=== PATIENT | male | born 1985 | race Caucasian/White ===

== ENCOUNTER 2022-12-15 14:02 | Outpatient (OUT) | payer OTHER, SELFPAY | END 2022-12-15 14:03 | disposition home or self-care (01) | LOC: LAB 14:07 | PROVIDERS: Visit Provider Internal Medicine | DX: B19.20 Unspecified viral hepatitis C without hepatic coma (principal) | CPT/HCPCS: 36415; 87522 ==

== ENCOUNTER 2023-06-04 12:13 | Outpatient (OUT) | payer OTHER, SELFPAY ==
--- NOTE | 2023-06-04 12:29 | XR_ITS ---
The [address] [address] Patient Name: BESSIE LINDA MRN: [id number] date: 1985 Sex: M Assigned Patient Location: LAB Current Patient Location: LAB Accession/Order Number: [id number] Exam Date: 06/04/2023 12:30 Report Date: 06/04/2023 13:03 At the request of: KENNY FELICITAS Procedure: XR abdomen min 2V EXAM: XR abdomen min 2V HISTORY: chronic constipation K59.09 COMPARISON: None. TECHNIQUE: AP view of the abdomen. FINDINGS: Nonobstructive bowel gas pattern is noted. There is no suspicious calcification. The osseous structures are intact. XR/XR abdomen min 2V IMPRESSION: Nonobstructive bowel gas pattern. Constipation. Electronically authenticated by: ANTOINETTE PORTER Date: 06/04/2023 13:03
[2023-06-04 12:58] LABS: Basophils Absolute Auto 0.1 10^3/uL (0.0-0.1); Basophils Percent Auto 1.2 % (0.2-2.0); Eosinophils Absolute Auto 0.4 10^3/uL (0.0-0.7); Eosinophils Percent Auto 5.6 % (0.9-7.0); Hematocrit 39.7 % (42.0-54.0); Hemoglobin 13.4 g/dL (14.0-18.0); Immature Granulocytes Abs Auto 0.01 10^3/uL (0.00-0.03); Immature Granulocytes Pct Auto 0.2 % (0.0-0.5); Lymphocytes Absolute Auto 2.1 10^3/uL (1.2-3.8); Mean Corpuscular HGB Conc 33.8 g/dL (29.9-35.2); Mean Corpuscular Volume 91.9 fL (80.0-94.0); Monocytes Absolute Auto 0.6 10^3/uL (0.3-0.8); Monocytes Percent Auto 9.5 % (1.7-12.0); Neutrophils Absolute Auto 3.3 10^3/uL (1.4-6.5); Neutrophils Percent Auto 50.5 % (43.0-75.0); Platelet Count 231 10^3/uL (150-450); Red Blood Count 4.32 10^6/uL (4.70-6.10); Red Cell Distribution Width 12.4 % (11.0-15.0); White Blood Count 6.4 10^3/uL (4.0-11.0)
[2023-06-04 13:32] LABS: Alanine Aminotransferase 17 U/L (16-63); Albumin Globulin Ratio 1.2; Alkaline Phosphatase 67 U/L (46-116); Amylase 48 U/L (25-115); Anion Gap 11.9; Aspartate Amino Transferase 16 U/L (15-37); BUN Creatinine Ratio 14.8; Bilirubin Total 0.5 mg/dL (0.2-1.0); Calcium 8.9 mg/dL (8.5-10.1); Chloride 105 mmol/L (98-107); Estimated GFR (African America >60 (>=60); Estimated GFR (Non-African Ame >60 (>=60); Globulin 3.3 g/dL; Glucose 85 mg/dL (74-106); Potassium 3.9 mmol/L (3.5-5.1); Sodium 141 mmol/L (136-145); Total Protein 7.3 g/dL (6.4-8.2)
== END 2023-06-04 12:14 | disposition home or self-care (01) ==
LOC: LAB 12:17
DX: K59.09 Other constipation (principal)
CPT/HCPCS: 36415; 74019; 80053; 82150; 83690; 85025